=== PATIENT | female | born 1980 | race Caucasian/White ===

== ENCOUNTER 2016-10-29 19:02 | Outpatient (CLI) | payer BC, OTHER | END 2016-10-29 19:03 | disposition home or self-care (01) | DX: R10.2 Pelvic and perineal pain (principal) ==

== ENCOUNTER 2016-11-04 17:37 | Outpatient (CLI) | payer BC ==
[2016-11-04] MEDS ORDERED: IOPAMIDOL-300 50 ML VIAL PO ONE (19:09)
[2016-11-04] MEDS ORDERED: IOPAMIDOL-300 100 ML VIAL IVP ONE (19:09)
== END 2016-11-04 17:38 | disposition home or self-care (01) ==
DX: R10.2 Pelvic and perineal pain (principal)
CPT/HCPCS: 74177; Q9967

== ENCOUNTER 2016-11-05 13:50 | Outpatient (CLI) | payer BC | END 2016-11-05 13:51 | disposition home or self-care (01) | DX: N63 Unspecified lump in breast (principal) ==

== ENCOUNTER 2017-08-25 08:00 | Outpatient (CLI) | payer BC | END 2017-08-25 08:01 | disposition home or self-care (01) | LOC: LAB.R 08:00 | PROVIDERS: ATTEND Family Medicine | DX: R30.0 Dysuria (principal) | CPT/HCPCS: 87086 ==

== ENCOUNTER 2020-04-27 11:10 | Outpatient (CLI) | payer BC ==
[2020-04-27 18:56] LABS: BASOPHILS % (AUTO) 0.7 %; HGB - HEMOGLOBIN 13.6 g/dL (12.0-16.0); LYMPHOCYTES % (AUTO) 28.5 %; MEAN CORPUSCULAR HEMOGLOBIN 28.3 pg (27.0-31.0); MEAN CORPUSCULAR HGB CONC 31.3 g/dL (32.0-36.0); MEAN CORPUSCULAR VOLUME 90.6 fL (81.0-99.0); MONOCYTES % (AUTO) 8.1 %; NEUTROPHILS % (AUTO) 59.4 %; PLT - PLATELET COUNT 261 10^3/uL (130-450); RED CELL DISTRIBUTION WIDTH 13.3 % (12.0-15.0); WHITE BLOOD COUNT 7.1 x10^3/uL (4.8-10.8)
[2020-04-27 19:01] LABS: ABNORMAL LYMPHS % (MANUAL) 0 %
[2020-04-27 19:17] LABS: BAND NEUTROPHILS % (MANUAL) 2 %; DIFFERENTIAL COMMENT MANUAL DIFFERENTIAL; EOSINOPHILS # (MANUAL) 0.2 10^3/uL (0-0.7); LYMPHOCYTES # (MANUAL) 2.1 10^3/uL (1.5-3.5); LYMPHOCYTES % (MANUAL) 29 %; MONOCYTES # (MANUAL) 0.8 10^3/uL (0.0-1.0); PLATELET ESTIMATE, MANUAL NORMAL (130-450,000) (NORMAL); PLATELET MORPHOLOGY NORMAL APPEARANCE (NORMAL); RBC MORPHOLOGY (MULTIPLE) NORMAL APPEARANCE (NORMAL)
[2020-04-27 19:33] LABS: ALBUMIN 4.1 g/dL (3.2-5.5); ALBUMIN/GLOBULIN RATIO 1.1 (1.0-2.2); ALKALINE PHOSPHATASE 55 IU/L (42-121); ALT ALANINE AMINOTRANSFERASE 17 IU/L (10-60); AST ASPARTATE AMINOTRANSFERASE 16 IU/L (10-42); BILIRUBIN,TOTAL 0.7 mg/dL (0.2-1.0); BUN - BLOOD UREA NITROGEN 9 mg/dL (6-20); CALCIUM 9.2 mg/dL (8.5-10.3); CARBON DIOXIDE - CO2 26 mmol/L (21-32); CHLORIDE 103 mmol/L (101-111); CHOL/HDL RATIO 3.4 (<4.4); CHOLESTEROL 211 mg/dL; CREATININE 0.7 mg/dL (0.4-1.0); GLUCOSE 86 mg/dL (70-100); HDL CHOLESTEROL 62 mg/dL; LDL CHOLESTEROL,CALCULATED 125 mg/dL; SODIUM 136 mmol/L (135-145); TOTAL PROTEIN 7.8 g/dL (6.7-8.2); VLDL CHOLESTEROL 24 mg/dL
[2020-04-27 20:22] LABS: HEMOGLOBIN A1c% 5.2 % (4.27-6.07)
== END 2020-04-27 23:59 | disposition home or self-care (01) ==
LOC: LAB.WCP 11:10
PROVIDERS: ATTEND Family Medicine
DX: Z00.00 Encounter for general adult medical examination without abnormal findings (principal)
CPT/HCPCS: 36415; 80053; 80061; 83036; 83721; 84443; 85025

== ENCOUNTER 2022-10-31 15:35 | Outpatient (CLI) | payer BC ==
[2022-10-31 16:35] VITALS: BP 108/62
--- NOTE | 2022-10-31 16:35 | SLEEP CARE CONSULTATION ---
Information from patient questionnaire entered by Royce Lance. I have reviewed and concur with the information entered by Royce Lance. This document represents the service I personally performed and the decisions made by me, Orquidea Lowry ARNP. History of Present Illness Service Date and Time: 10/31/2022 1535 Reason for Visit: New patient Chief Complaint: reports: Insomnia, Unrefreshed sleep, Excessive daytime sleepiness, Observed pauses in breathing, Fatigue, Frequent awakenings at night, Other (NIGHTMARES, NIGHT TERRORS, SLEEPWALKING, ANXIETY) Usual bedtime: 11PM-12AM Time it takes to fall asleep: 1-2 HRS; sometimes 30 mins but wake up with night terror Snores at night: Yes (not all the time) Sleeps alone due to snoring: No Number of times waking at night: 2-5 Reasons for waking at night: reports: Choking, Gasping for air, Bathroom, Other (NOISE, nightmares 3 times a week). denies: Snoring Toss, Turn, or Twitch while sleeping: Yes Recalls having dreams: Yes (nightmares/ terror at least 3 times a week) Usually gets out of bed at: 7AM Feels refreshed in the morning: No Morning headache: Yes (3-4 days a week; back of head; RESOLVES 10AM-12PM) Sleepy or fatigued during the day: Yes Ever fallen asleep while driving: No Takes day naps: No Dreams during day naps: No Prior sleep studies: No Additional HPI information: I had the pleasure of seeing LIZET MCKAY today regarding the possibility of her having a sleep disorder. Her current complaints are unrefreshed sleep, excessive daytime sleepiness, observed pauses in breathing, fatigue, frequent night awakenings, nightmares/night terrors and sleepwalking. Patient states she has a hard time getting good sleep because of nightmares and terrors at night. She has been told that she snores but it is not a nightly occurrence. Her has told her that she makes unusual noises at night but he cannot say if she actually stops breathing. She states she has woke up gasping for air, "startled" often with her night terrors. She has had nightmares since she was a child. Between ages [age] years she did not have very many nightmares at all but after she started to have children at age 25 the nightmares started back up again. She states she sleep walks about once a month. She has been known to hit, grab or kick out in her sleep. She does not wake up feeling refreshed and wakes up 2-5 times during the night on average for various reasons. - Parasomnia Symptoms Ever been unable to move upon waking from sleep: Yes (rarely, 1-2 times a year) Walks in sleep: Yes (every 4-6 weeks) Talks in sleep: Yes Ever acted out dreams in sleep: Yes (hit, grabbed and kicked out) Ever felt weak in the knees when startled or emotional: No Bothered by creepy, crawly, restless sensations in legs: Yes (not often) Problems with memory or concentration: Yes (occasional for both) Subjective Initial [place] Sleepiness Scale score: 14 (10/30/22) Past Medical History Past Medical History: reports: Anemia, Anxiety, Depression Social History The patient's occupation is a [employer]. Patient is and lives in [place]. Have you smoked in the past 12 months: No Alcohol use: Yes Alcohol amount and frequency: 1-4 A WEEK Caffeine use: Yes Caffeine amount and frequency: 1-2 DAILY Family History Family history of sleep disordered breathing: Yes Family Hx Sleep Apnea: Mother: Snoring, Father: Snoring Allergies and Home Medications Known drug allergies: No Drug allergies reviewed: Yes Home medication list reviewed: Yes (no daily medications) Review of Systems Weight gain over past 5 years: 25 Weight loss over past 5 years: 25, down now Cardiovascular: denies: high blood pressure Respiratory: denies: shortness of breath Gastrointestinal: reports: diarrhea. denies: heartburn Neurological: reports: headaches. denies: seizure Psychiatric: reports: anxiety, depression. denies: Attention Deficit Hyperactivity Ear/Nose/Throat: reports: nasal congestion, wisdom teeth removed. denies: tonsillectomy Endocrine: reports: thyroid disease (going to get this checked), too hot or cold (cold all the time) Musculoskeletal: reports: joint pain, neck pain, back pain Immunologic: reports: sneezing, allergies to food or environment Physical Exam Vital signs obtained and entered by: ROYCE Lewis MA Blood Pressure: 108/62 (LEFT ARM) Cuff size: regular Heart Rate: 75 O2 Saturation: 99 Height: 5 ft 9 in Weight: 217 lb Body Mass Index: 32.0 BMI Classification: Obese Neck circumference: 14.25 Mouth and throat: narrow oropharynx Soft palate: long Hard palate: normal Uvula: normal Uvula visualization: 25% Mallampati Class III Tongue: enlarged in size with teeth littlejohn on lateral edges Tonsils: small Neck: normal w/o lymphadenopathy or thyromegaly Heart: regular rate and rhythm Lungs: clear bilaterally Impression and Plan 1. Suspected Obstructive Sleep Apnea-Hypopnea Syndrome, as suggested by a history of irregular snoring, observed cessation of breath while asleep, gasping or choking in sleep, morning headache, frequent awakening during the night, unrefreshed sleep, cognitive impairment, and excessive daytime sleepiness. Narrow oropharynx and obesity are common predisposing factors for obstructive sleep apnea-hypopnea syndrome. I recommend proceeding to polysomnography to confirm the diagnosis and to assess severity. If the patient has significant sleep disordered breathing, a manual CPAP titration study will also be performed to find the optimal treatment pressure. I informed the patient of what the sleep studies involve and after some discussion, obtained agreement to proceed. The pathophysiology of obstructive sleep apnea-hypopnea syndrome was discussed with the patient and health risks of cardiovascular and cerebrovascular disease if not treated. Risks of drowsy driving discussed in detail and patient advised to avoid long distance driving and to pick pulling machine tender at the first sign of drowsiness. Patient agreed to plan. * Schedule polysomnography * Avoid long distance driving or driving when feeling sleepy. * Avoid alcohol, sedative and muscle relaxant around bedtime. * Attempt to lose weight. * Review instructions provided by trained office staff on how to prepare for the sleep study. * Return for follow-up after sleep study completed. Counseling Topics: Weight loss health impact Visit Type: In Office Time Spent with Patient (minutes): 31 Provider Statement: I spent 100% of the Face to Face Visit with the patient with greater than 50% spent counseling the patient and coordination of care.
== END 2022-10-31 15:36 | disposition home or self-care (01) ==
LOC: SC 15:35
PROVIDERS: ATTEND Nurse Practitioner Family
DX: G47.10 Hypersomnia, unspecified (principal); R53.83 Other fatigue; G47.8 Other sleep disorders; R51.9 Headache, unspecified; R06.83 Snoring; R06.81 Apnea, not elsewhere classified; F32.A Depression, unspecified; E66.9 Obesity, unspecified; Z68.32 Body mass index [BMI] 32.0-32.9, adult
CPT/HCPCS: 99203; 99212

== ENCOUNTER 2022-12-16 09:05 | Outpatient (CLI) | payer BC | END 2022-12-16 09:06 | disposition home or self-care (01) | LOC: SC 09:05 | PROVIDERS: ATTEND Nurse Practitioner Family | DX: G47.33 Obstructive sleep apnea (adult) (pediatric) (principal); E66.9 Obesity, unspecified; Z68.32 Body mass index [BMI] 32.0-32.9, adult | CPT/HCPCS: 95806 ==

== ENCOUNTER 2022-12-25 10:56 | Outpatient (CLI) | payer BC ==
--- NOTE | 2022-12-26 11:21 | Mammography Report ---
BILATERAL DIGITAL SCREENING MAMMOGRAM 3D/2D: 12/25/2022 CLINICAL: Routine screening. Comparison is made to exams dated: 11/05/2016 mammogram, 11/05/2016 ultrasound, and 11/05/2016 ultrasou or - [facility]. Both breasts are heterogeneously dense, which may obscure small masses (category c / 51-75% glandular tissue). No significant masses, calcifications, or other findings are seen in either breast. There has been no significant interval change. IMPRESSION: NEGATIVE There is no mammographic evidence of malignancy. A 1 year screening mammogram is recommended. Based on the Tyrer Cuzick model (a risk assessment model) the patients lifetime risk is 14.0% and he r 10 year risk is 2.4%. According to the ACR, ACS, and NCCN guidelines, an annual breast MRI exam vitaliy ng with mammogram is recommended if the patients lifetime risk is 20% or greater. This exam was interpreted at Station ID: [id number]. NOTE: For mammograms, a report in lay terms will be sent to the patient. Approximately 15% of breast malignancies will not be visualized mammographically. In the management of a palpable breast mass, a negative mammogram must not discourage biopsy of a clinically suspicious lesion. Electronically Signed By: Tk beal/hattie:12/25/2022 13:23:33 letter sent: No_Letter ACR BI-RADS Category 1: Negative 3341F PARENCHYMAL PATTERN: (D) - The breast(s) demonstrate(s) heterogeneously dense fibroglandular wilfred shell. BI-RADS CATEGORY: (1) - 1 Mammogram [id number] 1 year screening LATERALITY: (B)
== END 2022-12-25 10:57 | disposition home or self-care (01) ==
LOC: DI.N 10:56
PROVIDERS: ATTEND Nurse Practitioner
DX: Z12.31 Encounter for screening mammogram for malignant neoplasm of breast (principal)

== ENCOUNTER 2023-01-08 08:16 | Outpatient (CLI) | payer BC ==
--- NOTE | 2023-01-08 08:52 | Sleep Patient Instructions ---
Sleep Center Visit Summary - Patient Visit Information Reason for Visit: Sleep Study Followup - Patient Instructions Instructions Attached: Apnea Sleep Mouthpieces Additional Instructions: You have opted for an oral mandibular appliance to control your sleep apnea. A list of certified dentists in the area was provided for you to find a dentist to have your oral appliance made. Once you have the device, please call and make a follow up appointment. We need to see you after you have been using the appliance for a month. We will evaluate your response to therapy and order a follow up sleep study to check efficiency of treatment. Please follow up in the sleep care office a month after you have your oral device for further evaluation and follow up sleep study. - Clinic Information Contact: [facility] [address] [place] [address] [email or web address] T: [phone]
--- NOTE | 2023-01-08 08:57 | SLEEP CARE CONSULTATION ---
Information from patient questionnaire entered by Reena Lance. I have reviewed and concur with the information entered by Reena Lance. This document represents the service I personally performed and the decisions made by , Orquidea Lowry ARNP. History of Present Illness Service Date and Time: 01/08/2023 08 Initial [place] Sleepiness Scale score: 14 (10/30/22) Current [place] Sleepiness Scale score: 7 (01/08/23) Additional HPI information: LIZET MCKAY returns for follow up and results of the recently performed polysomnography. Her sleep study showed mild obstructive sleep apnea with an AHI of 6.1 and kiana oxygen saturation of 86%. I explained the pathophysiology behind obstructive sleep apnea. We then spent quite a bit of time discussing different treatment options. For mild obstructive sleep apnea, surgery and oral appliance are alternatives to nasal CPAP therapy but in moderate or severe cases, nasal CPAP is the most effective and reliable treatment. Because apnea is primarily in supine position, then positional management therapy could be effective. Methods discussed such as positioning with pillows, using a T-shirt with tennis balls in the back or commercial products that have a pillow format on back to prevent supine sleep. I reviewed the impact of weight changes on sleep apnea and strongly recommended losing weight. Patient was cautioned about risks of drowsy driving until sleepiness symptoms resolve. Sleep Study - Results Type of Sleep Study: Polysomnography (COMPLETED 12/16/22) Prior sleep studies: No Polysomnography/Home Sleep Study results: Physician Impression: The quality of the study is good. The length of the study is adequate (> 240 minutes). Please also see the tabulated and graphic data. 1. Obstructive Sleep Apnea-Hypopnea (ICD-10 G47.33), mild, with an AHI of 6.1/hr and kiana SaO2 of 86%. During the study, the patient had 10 apneas (10 obstructive, 0 central, 0 mixed) and 36 hypopneas. The longest episode lasted 64.0 seconds. The respiratory events occurred almost exclusively during supine sleep (supine AHI was 15.6 and non-supine, 1.21). 2. Hypoxemia (ICD-10 R09.02), minimal, with the lowest oxygen saturation of 86 % and 0.7 minutes with SaO2 under 90%. Baseline oxygen saturation was normal (Average oxygen saturation was 95%). Allergies and Home Medications Known drug allergies: No Drug allergies reviewed: Yes Home medication list reviewed: Yes (no changes) Allergy and home medication list: Allergies No Known Drug Allergies Allergy Review of Systems Review of systems same as previous: Yes (no changes) Physical Exam Vital signs obtained and entered by: REENA Lewis MA Blood Pressure: 124/74 (LEFT ARM) Cuff size: regular Heart Rate: 74 O2 Saturation: 98 Height: 5 ft 9 in Weight: 216 lb Body Mass Index: 31.8 BMI Classification: Obese Impression and Plan 1. Obstructive Sleep Apnea-Hypopnea Syndrome, mild, with lowest oxygen saturation of 86%. Obviously this is the cause of the patients symptoms of unrefreshed sleep, and excessive daytime sleepiness. Positive pressure therapy could benefit anxiety and depression. The patient chose an oral appliance to treat their apnea. A follow up will be made after using the oral device about a month to see if appliance has reduced symptoms. If so, another polysomnography will be ordered with use of the oral appliance to check efficacy in reducing apnea. Until patient is able to use the oral appliance, positional therapy is advised to avoid supine sleep with pillow positioning because apnea is more severe supine. She voiced understanding. 2. Obesity, unspecified. Currently patients BMI is 31.8. Obesity increases the risk of apnea, CPAP pressure requirements and overall health risks especially cardiovascular and diabetes. Thus patient is advised to lose weight. * Oral appliance. * Attempt to lose weight. * Avoid alcohol consumption near bedtime. * Avoid supine sleep. * The patient is again cautioned about driving until sleepiness completely resolves. * Return one month after oral appliance obtained. I will assess response to therapy at that time. Counseling Topics: Sleeping position, Weight loss health impact Visit Type: In Office Time Spent with Patient (minutes): 22 Provider Statement: I spent 100% of the Face to Face Visit with the patient with greater than 50% spent counseling the patient and coordination of care.
[2023-01-08 09:02] VITALS: BP 124/74
== END 2023-01-08 08:17 | disposition home or self-care (01) ==
LOC: SC 08:16
PROVIDERS: ATTEND Nurse Practitioner Family
DX: G47.33 Obstructive sleep apnea (adult) (pediatric) (principal); E66.9 Obesity, unspecified; Z68.31 Body mass index [BMI] 31.0-31.9, adult
CPT/HCPCS: 99212; 99213

== ENCOUNTER 2023-08-22 08:00 | Outpatient (CLI) | payer BC ==
[2023-08-22 20:47] LABS: CHLAMYDIA TRACHOMATIS DNA NEGATIVE (NEGATIVE); NEISSERIA GONORRHOEAE DNA NEGATIVE (NEGATIVE); TRICHOMONAS VAGINALIS DNA NEGATIVE (NEGATIVE)
== END 2023-08-22 23:59 | disposition home or self-care (01) ==
LOC: LAB 08:00
PROVIDERS: ATTEND Nurse Practitioner
DX: Z11.3 Encounter for screening for infections with a predominantly sexual mode of transmission (principal)
CPT/HCPCS: 87491; 87591; 87661